=== PATIENT | female | born 1940 | race Caucasian/White ===

== ENCOUNTER 2017-07-30 09:33 | Inpatient (IN) | payer MEDICARE, MEDICAID ==
[2017-07-30 10:06] LABS: % BASOPHILS 1.3 % (0.0-2.0); % EOSINOPHILS 0.5 % (0.0-5.0); % LYMPHOCYTES 10.3 % (20.0-50.0); % NEUTROPHILS 84.9 % (40.0-80.0); MEAN CELL VOLUME 91.2 fl (81-100); MEAN CORPUSCULAR HEMOGLOBIN 30.1 pg (27.0-31.0); MEAN PLATELET VOLUME 8.5 fl; NEUTROPHILE ABSOLUTE 8.6 Th/cmm (1.8-8.0); PLATELET COUNT 257 Th/cmm (150-400); RED BLOOD COUNT 4.84 Mil/cmm (3.80-5.20); RED CELL DISTRIBUTION WIDTH 12.8 % (11.5-20.0)
--- NOTE | 2017-07-30 10:09 | ED Physician Chart ---
Chief Complaint/HPI - Patient Information Date Seen:: 07/30/17 Time Seen:: 09:46 Chief Complaint:: SEIZURES History of Present Illness:: THIS IS A 76 YO FEMALE WHO WAS SENT FROM THE INTERMEDIATE FOR EVALUATION AND TREATMENT OF HER SEIZURES DISORDER. SHE HAD A TONIC CLONIC SEIZURE THAT LAST FOR ABOUT 15 SECONDS JUST 1 HOUR PRIOR TO ARRIVAL HERE. THE LAST SEIZURES SHE HAD WAS ABOUT A YEAR AGO. SHE IS CHRONICALLY ILL WITH COPD, CAD, OBESITY AND SCHIZOPHRENIA. Allergies:: Allergies Allergy/AdvReac Type Severity Reaction Status Date / Time Sulfa (Sulfonamide AdvReac Verified 07/30/17 09:37 Antibiotics) Vitals:: Vital Signs - 8 hr 07/30/17 09:42 Temp 98.1 F HR 84 RR 16 BP 121/66 O2 Sat % 96 Historian:: EMS, Medical Records Review:: Nurse's Note Reviewed, Old Chart Reviewed, Transfer documents Reviewed Review of Systems - Review of Systems General/Constitutional: No fever, No chills, No weight loss, No weakness, No diaphoresis, No edema, No loss of appetite, Other (THIS PATIENT IS UNABLE TO GIVE A REVIEW OF SYSTEMS.) Skin: No skin lesions, No rash, No bruising Head: No headache, No light-headedness Eyes: No loss of vision, No pain, No diplopia ENT: No earache, No nasal drainage, No sore throat, No tinnitus Neck: No neck pain, No swelling, No thyromegaly, No stiffness, No mass noted Cardio Vascular: No chest pain, No palpitations, No PND, No orthopnea, No edema Pulmonary: No SOB, No cough, No sputum, No wheezing GI: No nausea, No vomiting, No diarrhea, No pain, No melena, No hematochezia, No constipation, No hematemesis G/U: No dysuria, No frequency, No hematuria Musculoskeletal: No bone or joint pain, No back pain, No muscle pain Endocrine: No polyuria, No polydipsia Psychiatric: No prior psych history, No depression, No anxiety, No suicidal ideation Hematopoietic: No bruising, No lymphadenopathy Allergic/Immuno: No urticaria, No angioedema Neurological: No syncope, No focal symptoms, No weakness, No paresthesia, No headache, No seizure, No dizziness, No confusion, No vertigo Past Medical History - Past Medical History Obtainable: Yes Past Medical History: HTN, CAD, Asthma/COPD, Seizures, Dementia, Other ( PARKINSONS'S) Family History: None Social History: Non Smoker, No Alcohol, No Drug Use, Care Facility Surgical History: None Psychiatricy History: Schizophrenia Medication: Reviewed Family Medical History - Family Member Mother History Unknown: Yes Physical Exam - Physical Examination General/Constitutional: Awake, Well-developed, well-nourished, Alert, No distress, GCS 15, Non-toxic appearing, Ambulatory Other Gen/Cons comments:: DISORIENTED TIMES FOUR Head: Atraumatic Eyes: Lids, conjuctiva normal, PERRL, EOMI Skin: Nl inspection, No rash, No skin lesions, No ecchymosis, Well hydrated, No lymphadenopathy ENMT: External ears, nose nl, Nasal exam nl, Lips, teeth, gums nl Neck: Nontender, Full ROM w/o pain, No JVD, No nuchal rigidity, No bruit, No mass, No stridor Respiratory: Nl effort/Exclusion, Clear to Auscultation, No Wheeze/Rhonchi/Rales Cardio Vascular: RRR, No murmur, gallop, rubs, NL S1 S2 GI: No tenderness/rebounding/guarding, No organomegaly, No hernia, Normal BS's, Nondistended, No mass/bruits, No McBurney tenderness : No CVA tenderness Extremities: No tenderness or effusion, Full ROM, normal strength in all extremities, No edema, Normal digits & nails Neuro/Psych: DTR's symmetric, Normal sensory exam, Normal motor strength, Judgement/insight normal, Normal gait, No focal deficits Other Neuro/Psych comments:: SHE IS DISORIENTED AND LETHARGIC Misc: normal gait, Normal back, No paraspinal tenderness Labs/Radiology/EKG Results - Lab Results Results: Abnormal Lab Results 07/30/17 07/30/17 07/30/17 10:00 10:00 10:00 WBC 10.2 D RBC 4.84 Hgb 14.6 D Hct 44.2 D MCV 91.2 MCH 30.1 MCHC Differential 33.0 RDW 12.8 Plt Count 257 MPV 8.5 Neutrophils % 84.9 H Lymphocytes % 10.3 L Monocytes % 3.0 Eosinophils % 0.5 Basophils % 1.3 Specimen Source Sample Site pH pCO2 pO2 HCO3 Base Excess O2 Saturation Mendez Test Vent Rate Inspired O2 Tidal Volume PEEP Pressure (ins/psv/peep) Critical Value Sodium 137 Potassium 3.8 Chloride 102 Carbon Dioxide 24.5 Anion Gap 14.3 BUN 18 Creatinine 0.7 Est GFR ( Amer) TNP Est GFR (Non-Af Amer) TNP BUN/Creatinine Ratio 25.7 Glucose 145 H Calcium 9.3 Total Bilirubin 0.3 AST 16 ALT 12 Alkaline Phosphatase 77 Total Protein 6.3 Albumin 3.7 Globulin 2.6 Albumin/Globulin Ratio 1.4 Valproic Acid < 10.0 L 07/30/17 10:10 WBC RBC Hgb Hct MCV MCH MCHC Differential RDW Plt Count MPV Neutrophils % Lymphocytes % Monocytes % Eosinophils % Basophils % Specimen Source Arterial Sample Site Right Radial pH 7.36 pCO2 56.0 H* pO2 48.0 L* HCO3 28.3 H Base Excess 4.8 H O2 Saturation 82.0 L Mendez Test POSITIVE Vent Rate N/A Inspired O2 21 Tidal Volume N/A PEEP N/A Pressure (ins/psv/peep) N/A Critical Value SALAZAR Sodium Potassium Chloride Carbon Dioxide Anion Gap BUN Creatinine Est GFR ( Amer) Est GFR (Non-Af Amer) BUN/Creatinine Ratio Glucose Calcium Total Bilirubin AST ALT Alkaline Phosphatase Total Protein Albumin Globulin Albumin/Globulin Ratio Valproic Acid - Radiology Results Results: CHEST X-RAY = NAD - EKG Interpretations EKG Time:: 09:54 Rate & Rhythm: RATE=92 NSR [place]: LEFT Assessment - Assessment General Assessment: SEIZURE DISORDER HYPOXEMIA ED Septic Shock - . Is Septic Shock (SBP<90, OR Lactate>4 mmol\L) present?: No - <6hrs of presentation: Vital Signs: Vital Signs - 8 hr 07/30/17 09:42 Temp 98.1 F HR 84 RR 16 BP 121/66 O2 Sat % 96 Reassessment (Disposition) - Diagnosis Diagnosis:: SEIZURES HYPOXEMIA SCHIZOPHRENIA - Patient Disposition Discharge/Transfer:: Acute Care w/in this hosp Admitted to:: Telemetry Admitting Medical Physician:: Jonel Noe Condition at Disposition:: Improved ED Discharge Plan - Patient Disposition Admit/Discharge/Transfer: Acute Care w/in this hosp Condition at Disposition: Improved
[2017-07-30 10:11] LABS: HEMATOCRIT 44.2 % (35.0-45.0); HEMOGLOBIN 14.6 gm/dL (11.7-16.1); WHITE BLOOD COUNT 10.2 Th/cmm (4.8-10.8)
[2017-07-30 10:29] LABS: ALB/GLOB RATIO 1.4 (1.0-1.8); ALKALINE PHOSPHATASE 77 U/L (34-104); ANION GAP 14.3 (7.0-16.0); BILIRUBIN,TOTAL 0.3 mg/dL (0.3-1.0); BUN - UREA NITROGEN 18 mg/dL (7-25); BUN/CREATININE RATIO 25.7; CALCIUM SERUM 9.3 mg/dL (8.6-10.3); CARBON DIOXIDE 24.5 mEq/L (21.0-31.0); CHLORIDE 102 mEq/L (98-107); CREATININE - SERUM 0.7 mg/dL (0.6-1.2); GLUCOSE 145 mg/dL (70-105); POTASSIUM SERUM 3.8 mEq/L (3.5-5.1); SGOT 16 U/L (13-39); SGPT/ALT 12 U/L (7-52); SODIUM SERUM 137 mEq/L (136-145)
[2017-07-30 10:30] LABS: pH 7.36 (7.35-7.45)
[2017-07-30 10:31] LABS: BE(B) 4.8 mEq/L (-3.0-3.0); HCO3 28.3 mEq/L (20.0-26.0)
[2017-07-30 10:32] LABS: ABG SOURCE Arterial; ALLEN TEST POSITIVE; FIO2 21
[2017-07-30 10:33] LABS: CRITICAL VALUES REPORTED BY JC
--- NOTE | 2017-07-30 12:00 | Diagnostic Imaging Report ---
CHEST X-RAY: AP view INDICATION: Shortness of breath COMPARISON: 04/17/2015 FINDINGS: No focal consolidation or effusions. Chronic lung changes are noted. Mild cardiomegaly is noted. Atherosclerosis is noted. Degenerative changes of the spine and bilateral shoulders are noted. IMPRESSION: No focal consolidation or evidence of CHF. Mild cardiomegaly with atherosclerosis.
[2017-07-30] MEDS ORDERED: Albuterol Nebulizer 2.5mg/3mL HHN SCH (13:38)
[2017-07-30] MEDS ORDERED: Ipratropium Neb 0.5 mg/2.5 mL UD HHN SCH (13:38)
[2017-07-30] MEDS ORDERED: Levetiracetam 1000mg/100mL 1,000 MG/100 ML BAG IV SCH ×2 (14:15→15:30)
[2017-07-30] MEDS ORDERED: Levetiracetam 500mg/100mL 500 MG/100 ML BAG IV SCH (15:30)
[2017-07-30] MEDS ORDERED: Levetiracetam 1000mg/100mL 1,000 MG/100 ML BAG IV ONE (16:15)
[2017-07-30 16:53] VITALS: BP 143/57
[2017-07-30] MEDS ORDERED: Valproate Sodium 1,000 MG in Sodium Chloride 0.9% 100 ML IV SCH (17:00)
[2017-07-30] MEDS ORDERED: Maalox 30 mL Cup PO PRN (17:12)
[2017-07-30] MEDS ORDERED: Hydrocodone/APAP 5mg/325mg Tab PO PRN (17:12)
[2017-07-30] MEDS: Valproate Sodium 1,000 MG in Sodium Chloride 0.9% 100 ML IV SCH (17:20)
[2017-07-30] MEDS: Albuterol/Ipratropium Neb 3 ML AERS HHN SCH (19:24)
[2017-07-30] MEDS ORDERED: Diltiazem 5 mg/mL 5mL Vial IVP STA (20:29)
--- NOTE | 2017-07-30 20:29 | History & Physical ---
ADMIT DATE: 07/30/2017 PATIENT IDENTIFICATION: A 76-year-old female. CHIEF COMPLAINT: Brought in to the Emergency Room for altered mental status and seizure evaluation. HISTORY SOURCE: Reviewing the chart, talking to the Emergency Room MD as well as ICU nurse Mena. HISTORY OF PRESENT ILLNESS: A 76-year-old female. She resides at [facility] under the care of primary care doctor, Dr. Koehler, was brought in to the Emergency Room for evaluation of altered mental status with the seizure. According to the chart, the patient does have history of seizure disorder and she is supposed to take Depakote as well as the Keppra. Depakote level here in the hospital Emergency Room was reported less than 10. The patient was given p.o. Depakote here in the Emergency Room, but subsequently the patient was admitted to telemetry unit where the patient had another seizure. The patient was transferred to ICU for altered mental status and seizure and the patient was hypoxic. Upon my arrival, the patient came back from her postictal phase and started talking. According to the nursing staff, the patient had a fever of 100.6. The patient is alert, awake, and trying to appropriately answer the questions. PAST MEDICAL HISTORY: Remarkable for; 1. COPD. 2. Seizure. 3. Hypertension. 4. Obesity. 5. Gastroesophageal reflux disease. 6. Hyper ammonia level. 7. Psychotic disorder. 8. Urinary tract infection. MEDICATIONS: At the detention, the patient is taking multiple medications, which include metoprolol, ____, Keppra, Depakote, Colace, clonidine, vitamin D, atorvastatin, milk of magnesia, Tylenol. ALLERGIES: The patient is allergic to SULFA. SOCIAL HISTORY: The patient lives currently in a detention. The patient has no smoking, alcohol or drug use. FAMILY HISTORY: Unavailable. REVIEW OF SYSTEMS: The patient denies any headache. Denies any chest pain, denies any shortness of breath, denies any abdominal pain. Denies any hematemesis, hematuria, hematochezia, or melena. The patient denies any cough. PHYSICAL EXAMINATION: GENERAL: The patient is alert, awake, lying in the bed, following commands. VITAL SIGNS: Temperature 100.1, pulse is 120, respiratory rate 23, blood pressure 150/73. HEENT: Normocephalic, atraumatic. Extraocular muscles are intact. Tongue was pink and coated. Oropharynx congested. Nasal mucosa congested. NECK: Supple. No JVD, no hepatojugular reflex. No lymphadenopathy, thyromegaly or carotid bruit. HEART: Both heart sounds are regular, tachycardia noted. CHEST AND LUNGS: Equal in expansion with mild expiratory wheezing. ABDOMEN: Protuberant, soft. No guarding, rigidity. Bowel sounds are present. EXTREMITIES: Bilateral foot drop noted with no calf tenderness. NEUROLOGIC: Alert, awake, follows commands. Decreased power on the lower extremity noted which includes flexion, extension of proximal and distal muscles and no movement on both feet noted. Upper extremities, the patient is moving fairly well. AVAILABLE DIAGNOSTIC DATA: Performed in the Emergency Room, which include white count of 10.2, hemoglobin 14.6, platelet count of 257, pH of 7.36, pCO2 of 56, pO2 of 48, bicarbonate of 28.3. BUN and creatinine are 18 and 0.7. Electrolytes are normal. Random blood sugar 145. Depakote level is less than 10, liver functions are normal. CLINICAL IMPRESSION: 1. Most likely breakthrough seizure. 2. Hypoxia, secondary to central etiology and possible obstructive sleep apnea, obesity hypoventilation syndrome. 3. Hypertension. 4. Breakthrough seizure secondary to subtherapeutic Depakote and Keppra level. 5. Hepatic encephalopathy by history. 6. Psychotic disorder. 7. Gastroesophageal reflux disease. 8. Morbid obesity. 9. Chronic obstructive pulmonary disease. PLAN: The patient is admitted at this time to ICU, oxygen, nebulizer treatment will be added, empirically IV Rocephin will be added. Neurology consultation will be requested, continue to provide seizure precautions along with IV Depakote and Keppra for now. At also get the baseline EEG as well. The patient was noted to have heart rate of 125. The patient was seen by assembler adjuster, will follow his recommendation as well. Cardiac enzymes will be done. Neuro check will be done as well as for follow up lab. Care plan has been reviewed and discussed with the patient and the RN. JOB# [id number]
[2017-07-30] MEDS: D5-0.45NS 1,000 ML IV SCH (20:42)
[2017-07-30] MEDS: Atorvastatin Calcium 10 MG TAB PO SCH (20:44)
--- NOTE | 2017-07-30 21:15 | Consultation ---
DATE OF CONSULTATION: 07/30/2017 HISTORY OF PRESENT ILLNESS: A 76-year-old female. She is in long term. Seizure, tonic-clonic. There are no other seizures while here. There is a history of seizures. Last one about a year ago. The patient on Depakote and Keppra. Depakote level very low. The patient is lying in bed. PAST MEDICAL HISTORY: Seizures, dementia, Parkinson's, unclear whether the primary or secondary to medications. Hypertension, coronary artery disease, asthma, COPD. MEDICATIONS: Per reconciliation. REVIEW OF SYSTEMS: Twelve point negative except for above. PHYSICAL EXAMINATION: VITAL SIGNS: Temperature 98.1, blood pressure 120/66, pulse is 84. NECK: Supple, no bruits. HEART: Sounds S1, S2. LUNGS: Clear. NEUROLOGIC: Awake, alert. The patient answers questions, give me her name. but not much more. Pupils react to light. She is able to name simple objects. Face immobile. MOTOR: She has drift right and left arm, but increased tone, rigidity, cogwheeling. Tremor, more on the right than left, resting and action. Lower extremity, not much movement. The patient's reflexes about 1 ____ extremity, difficult to get the knees and ankles. IMPRESSION: 1.Seizure, with history of seizures. 2.Encephalopathy. 3.Schizophrenia. 4.Parkinson's. 5.Dementia. 6.Coronary artery disease. 7.Hypertension. PLAN: We will give IV Depakote and Keppra. CT scan, EEG. JOB# [id number]
--- NOTE | 2017-07-31 01:12 | Consultation ---
DATE OF CONSULTATION: 07/30/[address] Noe. HISTORY AND PHYSICAL: This 76-year-old female patient, who was transferred from [facility] because of altered level of consciousness as well as seizure activity. The patient was admitted to telemetry bed where the patient had repeat seizures and the patient was transferred to the intensive care unit. The patient had supraventricular tachycardia. The patient was started on Cardizem drip. PAST MEDICAL HISTORY: Grand mal seizures, supraventricular tachycardia, morbid obesity, COPD, Parkinson's disease, hypertension, iron deficiency anemia, hyperlipidemia, vitamin D deficiency, onychomycosis of the toenails, schizophrenia, hepatic encephalopathy. FAMILY HISTORY: Unremarkable. SOCIAL HISTORY: No history of smoking, alcohol abuse. ALLERGIES: No known allergies. PHYSICAL EXAMINATION: VITAL SIGNS: Blood pressure 130/82, pulse 120 regular, respirations 28. HEAD: Normocephalic. No lumps or bumps. EYES: Pupils are equal, reactive to light. Fundi show AV nicking, sclerae white, conjunctivae pink. NECK: Carotid 2+. Normal upstroke. JVD flat. Thyroid not palpable. Lymph nodes not palpable. CHEST: Shows increased AP diameter. No kyphosis, scoliosis. LUNGS: Bilateral bronchovesicular breath sounds. HEART: PMI fifth intercostal space with lateral to midclavicular line. S1, S2. No S3, S4. Systolic murmur, grade 2/6, lower left sternal border without radiation. ABDOMEN: Soft. Liver and spleen are not palpable. No organomegaly. Bowel sounds are active. NEUROLOGIC: Seizure activity. EXTREMITIES: Peripheral pulses 2+. No pedal edema. CLINICAL IMPRESSION: Grand mal seizures, supraventricular tachycardia, hepatic encephalopathy, morbid obesity, chronic obstructive pulmonary disease, Parkinson's disease, hypertension, iron deficiency anemia, hyperlipidemia, vitamin D deficiency, onychomycosis of toenails, schizophrenia. PLAN: The patient will continue on IV Ativan, neurology consult, and start the patient on Cardizem drip, also get an echocardiogram. JOB# [id number]
[2017-07-31] MEDS: Albuterol/Ipratropium Neb 3 ML AERS HHN SCH ×4 (01:46→18:41)
[2017-07-31] MEDS: Levetiracetam 1000mg/100mL 1,000 MG/100 ML BAG IV SCH ×2 (03:50→15:58)
[2017-07-31] MEDS: Valproate Sodium 1,000 MG in Sodium Chloride 0.9% 100 ML IV SCH ×2 (04:06→18:28)
[2017-07-31 07:41] LABS: MEAN CELL VOLUME 91.3 fl (81-100); MEAN CORPUSCULAR HEMOGLOBIN 30.2 pg (27.0-31.0); MEAN CORPUSCULAR HGB CONC 33.1 pg (28.0-36.0); MEAN PLATELET VOLUME 8.3 fl; PLATELET COUNT 221 Th/cmm (150-400); RED BLOOD COUNT 4.11 Mil/cmm (3.80-5.20); RED CELL DISTRIBUTION WIDTH 12.5 % (11.5-20.0)
[2017-07-31 07:55] LABS: ALB/GLOB RATIO 1.5 (1.0-1.8); ALKALINE PHOSPHATASE 55 U/L (34-104); ANION GAP 6.6 (7.0-16.0); BILIRUBIN,TOTAL 0.5 mg/dL (0.3-1.0); BUN - UREA NITROGEN 11 mg/dL (7-25); BUN/CREATININE RATIO 15.7; CALCIUM SERUM 8.7 mg/dL (8.6-10.3); CARBON DIOXIDE 31.3 mEq/L (21.0-31.0); CHLORIDE 103 mEq/L (98-107); CHOLESTEROL 144 mg/dL (<200); CREATININE - SERUM 0.7 mg/dL (0.6-1.2); GLUCOSE 105 mg/dL (70-105); POTASSIUM SERUM 3.9 mEq/L (3.5-5.1); SGOT 12 U/L (13-39); SGPT/ALT 10 U/L (7-52); SODIUM SERUM 137 mEq/L (136-145); TRIGLYCERIDES 78 mg/dL (<150)
[2017-07-31 08:24] LABS: WHITE BLOOD COUNT 12.2 Th/cmm (4.8-10.8)
[2017-07-31 08:25] LABS: HEMATOCRIT 37.6 % (35.0-45.0); HEMOGLOBIN 12.4 gm/dL (11.7-16.1)
[2017-07-31] MEDS ORDERED: Pneumococcal Vaccine 0.5 mL Vial IM ONE (10:00)
[2017-07-31 10:31] LABS: NEUTROPHILS 81 % (40-80); PLATELET ESTIMATE ADEQUATE (NORMAL); PLATELET MORPHOLOGY NORMAL (NORMAL)
[2017-07-31 10:38] LABS: TOTAL CELLS COUNTED 100
[2017-07-31] MEDS: NYSTATIN 100000 UNITS/GM POWD TP SCH ×2 (10:45→18:30)
--- NOTE | 2017-07-31 11:18 | Diagnostic Imaging Report ---
Head CT without intravenous contrast Indication: CVA Comparison: 02/19/2015 Technique: Axial images were obtained from the vertex to the skull base without IV contrast. Coronal reconstructions were made. Total DLP: 703, CTDI38 FINDINGS: Images of the brain obtained without contrast demonstrate no acute hemorrhage. No mass lesions identified. The ventricles and basal cisterns are patent. The garrison-white matter differentiation is preserved. There is no mass effect or midline shift. Atrophy is noted. Atherosclerosis is noted. No skull fractures identified. No soft tissue swelling. The paranasal sinuses are clear. IMPRESSION: No CT evidence of acute intracranial abnormality. Clinically indicated a follow-up MRI may also be obtained Atrophy. Atherosclerotic vascular disease.
[2017-07-31] MEDS: D5-0.45NS 1,000 ML IV SCH (15:59)
--- NOTE | 2017-07-31 16:37 | General Progress Note ---
Subjective - Review of Systems Subjective: Patient is seen and examined. Patient is more alert awake and oriented. Rug Washer's note reviewed. Patient denies any chest pain, shortness of breath , palpitation, dizziness, headache. Objective - Results Result Diagrams: 07/31/17 07:16 07/31/17 07:16 Recent Labs: Laboratory Last Values WBC 12.2 Th/cmm (4.8-10.8) H 07/31/17 07:16 RBC 4.11 Mil/cmm (3.80-5.20) 07/31/17 07:16 Hgb 12.4 gm/dL (11.7-16.1) D 07/31/17 07:16 Hct 37.6 % (35.0-45.0) D 07/31/17 07:16 MCV 91.3 fl (81-100) 07/31/17 07:16 MCH 30.2 pg (27.0-31.0) 07/31/17 07:16 MCHC Differential 33.1 pg (28.0-36.0) 07/31/17 07:16 RDW 12.5 % (11.5-20.0) 07/31/17 07:16 Plt Count 221 Th/cmm (150-400) 07/31/17 07:16 MPV 8.3 fl 07/31/17 07:16 Neutrophils % 84.9 % (40.0-80.0) H 07/30/17 10:00 Lymphocytes % 10.3 % (20.0-50.0) L 07/30/17 10:00 Monocytes % 3.0 % (2.0-10.0) 07/30/17 10:00 Eosinophils % 0.5 % (0.0-5.0) 07/30/17 10:00 Basophils % 1.3 % (0.0-2.0) 07/30/17 10:00 Neutrophils (Manual) 81 % (40-80) H 07/31/17 07:16 Lymphocytes 11 % (20-50) L 07/31/17 07:16 Monocytes 8 % (2-10) 07/31/17 07:16 Platelet Estimate ADEQUATE (NORMAL) 07/31/17 07:16 Platelet Morphology NORMAL (NORMAL) 07/31/17 07:16 RBC Morph Micro Appear NORMAL (NORMAL) 07/31/17 07:16 Specimen Source Arterial 07/30/17 10:10 Sample Site Right Radial 07/30/17 10:10 pH 7.36 (7.35-7.45) 07/30/17 10:10 pCO2 56.0 mmHg (35.0-45.0) H* 07/30/17 10:10 pO2 48.0 mmHg (80.0-100.0) L* 07/30/17 10:10 HCO3 28.3 mEq/L (20.0-26.0) H 07/30/17 10:10 Base Excess 4.8 mEq/L (-3.0-3.0) H 07/30/17 10:10 O2 Saturation 82.0 % (92.0-100.0) L 07/30/17 10:10 Mendez Test POSITIVE 07/30/17 10:10 Vent Rate N/A 07/30/17 10:10 Inspired O2 21 07/30/17 10:10 Tidal Volume N/A 07/30/17 10:10 PEEP N/A 07/30/17 10:10 Pressure (ins/psv/peep) N/A 07/30/17 10:10 Critical Value SALAZAR 07/30/17 10:10 Sodium 137 mEq/L (136-145) 07/31/17 07:16 Potassium 3.9 mEq/L (3.5-5.1) 07/31/17 07:16 Chloride 103 mEq/L (98-107) 07/31/17 07:16 Carbon Dioxide 31.3 mEq/L (21.0-31.0) H 07/31/17 07:16 Anion Gap 6.6 (7.0-16.0) L 07/31/17 07:16 BUN 11 mg/dL (7-25) 07/31/17 07:16 Creatinine 0.7 mg/dL (0.6-1.2) 07/31/17 07:16 Est GFR ( Amer) TNP 07/31/17 07:16 Est GFR (Non-Af Amer) TNP 07/31/17 07:16 BUN/Creatinine Ratio 15.7 07/31/17 07:16 Glucose 105 mg/dL (70-105) 07/31/17 07:16 Calcium 8.7 mg/dL (8.6-10.3) 07/31/17 07:16 Total Bilirubin 0.5 mg/dL (0.3-1.0) 07/31/17 07:16 AST 12 U/L (13-39) L 07/31/17 07:16 ALT 10 U/L (7-52) 07/31/17 07:16 Alkaline Phosphatase 55 U/L (34-104) 07/31/17 07:16 Ammonia 78 umol/L (16-53) H 07/30/17 17:35 Troponin I 0.07 ng/mL (0.01-0.05) H* 07/31/17 07:16 Total Protein 5.3 gm/dL (6.0-8.3) L 07/31/17 07:16 Albumin 3.2 gm/dL (3.7-5.3) L 07/31/17 07:16 Globulin 2.1 gm/dL 07/31/17 07:16 Albumin/Globulin Ratio 1.5 (1.0-1.8) 07/31/17 07:16 Triglycerides 78 mg/dL (<150) 07/31/17 07:16 Cholesterol 144 mg/dL (<200) 07/31/17 07:16 LDL Cholesterol Direct 85 mg/dL (75-193) 07/31/17 07:16 HDL Cholesterol 40 mg/dL (23-92) 07/31/17 07:16 Valproic Acid < 10.0 ug/mL (50.0-100.0) L 07/30/17 10:00 - Physical Exam Vitals and I&O: Vital Signs Temp 97.9 F 07/31/17 12:00 Pulse 102 07/31/17 14:00 Resp 17 07/31/17 14:00 BP 129/70 07/31/17 14:00 Pulse Ox 96 07/31/17 14:00 Intake & Output 07/30/17 07/31/17 07/31/17 18:59 06:59 18:59 Intake Total 320 964.167 Output Total 600 Balance -280 964.167 Weight (lbs) 120.287 kg Intake: Intake, IV Amount 320 964.167 D5-0.45NS 1,000 ml @ 50 964.167 mls/hr IV .Q20H [facility] Rx#: [id number] Levetiracetam 1000mg/ 100 100mL 1,000 mg In 100 ml @ 400 mls/hr IV Q12H [facility] Rx#:[id number] Valproate Sodium 1,000 mg 220 In Sodium Chloride 0.9% 100 ml @ 100 mls/hr IV Q12H [facility] Rx#:[id number] Oral 0 Output: Urine 400 Stool 200 Other: # Bowel Movements 1 Stool Characteristics Formed [place] Active Medications: Current Medications Acetaminophen (Tylenol 650mg Supp) 650 mg RC Q6H PRN PRN Reason: Fever > 101 Stop: 09/28/17 15:39 Acetaminophen (Tylenol) 650 mg PO Q6HR PRN PRN Reason: Fever >100.5 Stop: 09/28/17 17:11 Acetaminophen/Hydrocodone Bitart ([place] 5mg/325mg) 1 tab PO Q6HR PRN PRN Reason: Pain Stop: 09/28/17 17:11 Al Hydrox/Mg Hydrox/Simethicone (Maalox) 30 ml PO Q4HR PRN PRN Reason: Gi upset Albuterol/Ipratropium (Duoneb Neb) 3 ml HHN Q6HRT [facility] Stop: 09/28/17 18:59 Last Admin: 07/31/17 12:09 Dose: 3 ml Atorvastatin Calcium (Lipitor) 10 mg PO HS BRETT PRN Reason: Protocol Stop: 09/28/17 20:59 Last Admin: 07/30/17 20:44 Dose: Not Given Docusate Sodium (Colace) 250 mg PO DAILY [facility] Stop: 09/29/17 08:59 Last Admin: 07/31/17 10:43 Dose: 250 mg Valproate Sodium 1,000 mg/ (Sodium Chloride) 110 mls @ 100 mls/hr IV Q12H [facility] Stop: 09/28/17 15:59 Last Infusion: 07/31/17 05:13 Dose: Infused Levetiracetam (Keppra Pb) 1,000 mg in 100 mls @ 400 mls/hr IV Q12H [facility] Stop: 09/29/17 03:59 Last Admin: 07/31/17 15:58 Dose: 100 mls/hr Dextrose/Sodium Chloride (D5-0.45ns) 1,000 mls @ 50 mls/hr IV .Q20H [facility] Stop: 09/28/17 20:28 Last Admin: 07/31/17 15:59 Dose: 50 mls/hr Diltiazem HCl 125 mg/ Dextrose 125 mls @ 10 mls/hr IV TITR BRETT; 10 MG/HR PRN Reason: Protocol Stop: 09/28/17 20:30 Lorazepam (Ativan) 1 mg IVP Q1H PRN; Protocol PRN Reason: FOR SEIZURE Stop: 09/28/17 20:07 Last Admin: 07/31/17 02:02 Dose: 1 mg Metoprolol Tartrate (Lopressor) 50 mg PO DAILY BRETT Stop: 09/29/17 08:59 Last Admin: 07/31/17 09:00 Dose: Not Given Miscellaneous (Calcium/Cholecalciferol/Sodi [Calcium With Vitamin D 600 Mg-400 Iu-5 Mg]) 1 tab PO DAILY [facility] Stop: 09/29/17 08:59 Nystatin (Nystop) 100 units TP BID [facility] Stop: 09/29/17 08:59 Last Admin: 07/31/17 10:45 Dose: 100 units General: Alert, Cooperative HEENT: Atraumatic, PERRLA, EOMI Neck: Supple, Other (no JVD, no thyromegaly, no lymphadenopathy.) Cardiovascular: Regular rate, Normal S1, Normal S2 Lungs: Clear to auscultation, Normal air movement Abdomen: Bowel sounds, Soft, Tender Extremities: Other (bilateral foot drop noted) Neurological: Other (alert awake follows, and mowing upper extremity without difficulty lower extremity weakness reported.) Psych/Mental Status: Mental status NL - Procedures Procedures: Procedures Procedure Code Date INSERT PICC CATH [id number] 04/10/15 VENOUS CATHETERIZATION NEC 38.93 04/10/15 Assessment/Plan - Problem List Patient Problems: All Active Problems Hyperglycemia (Acute) R73.9 Hypopotassemia (Acute) E87.6 Morbid obesity (Acute) E66.01 Status epilepticus (Acute) G40.901 - Assessment Assessment: Altered mental status secondary to breakthrough seizure. Rule out CVA. Hypertension Hyperlipidemia Diffuse DJD Psychiatric disorder GERD Bilateral lower extremity weakness and foot drop. Seizure disorder - Plan Plan: Transfer her to [facility] floor. IV Keppra to by mouth Keppra. IV Depacon to by mouth Depakote. When necessary IV Ativan. Seizure precaution. General nursing care. Nutritional support Chronic management of her illness as ordered. Follow lab. Follow consultants recommendations Care plan reviewed and discussed with RN.
[2017-07-31] MEDS ORDERED: Levetiracetam 500mg/100mL 500 MG/100 ML BAG IV SCH (17:00)
[2017-07-31] MEDS: Atorvastatin Calcium 10 MG TAB PO SCH (21:16)
[2017-08-01] MEDS: Albuterol/Ipratropium Neb 3 ML AERS HHN SCH ×4 (01:11→18:51)
[2017-08-01] MEDS: Levetiracetam 1000mg/100mL 1,000 MG/100 ML BAG IV SCH (03:01)
[2017-08-01] MEDS: Valproate Sodium 1,000 MG in Sodium Chloride 0.9% 100 ML IV SCH (03:28)
[2017-08-01] MEDS: NYSTATIN 100000 UNITS/GM POWD TP SCH ×2 (13:01→18:22)
[2017-08-01] MEDS: D5-0.45NS 1,000 ML IV SCH (18:21)
[2017-08-01] MEDS: Atorvastatin Calcium 10 MG TAB PO SCH (21:42)
[2017-08-02] MEDS: Albuterol/Ipratropium Neb 3 ML AERS HHN SCH ×3 (01:11→13:54)
[2017-08-02] MEDS: NYSTATIN 100000 UNITS/GM POWD TP SCH (09:07)
[2017-08-02] MEDS ORDERED: Calcium Carb/Vit D 500 mg/200 U Tab PO SCH (09:30)
--- NOTE | 2017-08-02 12:44 | General Progress Note ---
Subjective - Review of Systems Subjective: Patient is seen and examined. Patient denies any chest pain, shortness of breath , palpitation, dizziness, headache. Now patient is in room 15 bed 1. Patient is eating her own meal. No new events reported by nursing staff. Objective - Results Result Diagrams: 07/31/17 07:16 07/31/17 07:16 Recent Labs: Laboratory Last Values WBC 12.2 Th/cmm (4.8-10.8) H 07/31/17 07:16 RBC 4.11 Mil/cmm (3.80-5.20) 07/31/17 07:16 Hgb 12.4 gm/dL (11.7-16.1) D 07/31/17 07:16 Hct 37.6 % (35.0-45.0) D 07/31/17 07:16 MCV 91.3 fl (81-100) 07/31/17 07:16 MCH 30.2 pg (27.0-31.0) 07/31/17 07:16 MCHC Differential 33.1 pg (28.0-36.0) 07/31/17 07:16 RDW 12.5 % (11.5-20.0) 07/31/17 07:16 Plt Count 221 Th/cmm (150-400) 07/31/17 07:16 MPV 8.3 fl 07/31/17 07:16 Neutrophils % 84.9 % (40.0-80.0) H 07/30/17 10:00 Lymphocytes % 10.3 % (20.0-50.0) L 07/30/17 10:00 Monocytes % 3.0 % (2.0-10.0) 07/30/17 10:00 Eosinophils % 0.5 % (0.0-5.0) 07/30/17 10:00 Basophils % 1.3 % (0.0-2.0) 07/30/17 10:00 Neutrophils (Manual) 81 % (40-80) H 07/31/17 07:16 Lymphocytes 11 % (20-50) L 07/31/17 07:16 Monocytes 8 % (2-10) 07/31/17 07:16 Platelet Estimate ADEQUATE (NORMAL) 07/31/17 07:16 Platelet Morphology NORMAL (NORMAL) 07/31/17 07:16 RBC Morph Micro Appear NORMAL (NORMAL) 07/31/17 07:16 Specimen Source Arterial 07/30/17 10:10 Sample Site Right Radial 07/30/17 10:10 pH 7.36 (7.35-7.45) 07/30/17 10:10 pCO2 56.0 mmHg (35.0-45.0) H* 07/30/17 10:10 pO2 48.0 mmHg (80.0-100.0) L* 07/30/17 10:10 HCO3 28.3 mEq/L (20.0-26.0) H 07/30/17 10:10 Base Excess 4.8 mEq/L (-3.0-3.0) H 07/30/17 10:10 O2 Saturation 82.0 % (92.0-100.0) L 07/30/17 10:10 Mendez Test POSITIVE 07/30/17 10:10 Vent Rate N/A 07/30/17 10:10 Inspired O2 21 07/30/17 10:10 Tidal Volume N/A 07/30/17 10:10 PEEP N/A 07/30/17 10:10 Pressure (ins/psv/peep) N/A 07/30/17 10:10 Critical Value SALAZAR 07/30/17 10:10 Sodium 137 mEq/L (136-145) 07/31/17 07:16 Potassium 3.9 mEq/L (3.5-5.1) 07/31/17 07:16 Chloride 103 mEq/L (98-107) 07/31/17 07:16 Carbon Dioxide 31.3 mEq/L (21.0-31.0) H 07/31/17 07:16 Anion Gap 6.6 (7.0-16.0) L 07/31/17 07:16 BUN 11 mg/dL (7-25) 07/31/17 07:16 Creatinine 0.7 mg/dL (0.6-1.2) 07/31/17 07:16 Est GFR ( Amer) TNP 07/31/17 07:16 Est GFR (Non-Af Amer) TNP 07/31/17 07:16 BUN/Creatinine Ratio 15.7 07/31/17 07:16 Glucose 105 mg/dL (70-105) 07/31/17 07:16 Calcium 8.7 mg/dL (8.6-10.3) 07/31/17 07:16 Total Bilirubin 0.5 mg/dL (0.3-1.0) 07/31/17 07:16 AST 12 U/L (13-39) L 07/31/17 07:16 ALT 10 U/L (7-52) 07/31/17 07:16 Alkaline Phosphatase 55 U/L (34-104) 07/31/17 07:16 Ammonia 78 umol/L (16-53) H 07/30/17 17:35 Troponin I 0.07 ng/mL (0.01-0.05) H* 07/31/17 07:16 Total Protein 5.3 gm/dL (6.0-8.3) L 07/31/17 07:16 Albumin 3.2 gm/dL (3.7-5.3) L 07/31/17 07:16 Globulin 2.1 gm/dL 07/31/17 07:16 Albumin/Globulin Ratio 1.5 (1.0-1.8) 07/31/17 07:16 Triglycerides 78 mg/dL (<150) 07/31/17 07:16 Cholesterol 144 mg/dL (<200) 07/31/17 07:16 LDL Cholesterol Direct 85 mg/dL (75-193) 07/31/17 07:16 HDL Cholesterol 40 mg/dL (23-92) 07/31/17 07:16 Valproic Acid < 10.0 ug/mL (50.0-100.0) L 07/30/17 10:00 - Physical Exam Vitals and I&O: Vital Signs Temp 96.5 F 08/02/17 04:00 Pulse 86 08/02/17 09:07 Resp 20 08/02/17 07:31 BP 134/71 08/02/17 09:07 Pulse Ox 94 08/02/17 07:30 Intake & Output 08/01/17 08/02/17 08/02/17 18:59 06:59 18:59 Intake Total 599.167 200 Output Total 1230 600 Balance -630.833 -400 Weight (lbs) 119.567 kg 119.249 kg Intake: Intake, IV Amount 299.167 D5-0.45NS 1,000 ml @ 50 299.167 mls/hr IV .Q20H [facility] Rx#: [id number] Oral 300 200 Output: Urine 1230 600 Other: # Bowel Movements 1 0 Stool Characteristics Soft Formed Brown Active Medications: Current Medications Acetaminophen (Tylenol 650mg Supp) 650 mg RC Q6H PRN PRN Reason: Fever > 101 Stop: 09/28/17 15:39 Acetaminophen (Tylenol) 650 mg PO Q6HR PRN PRN Reason: Fever >100.5 Stop: 09/28/17 17:11 Acetaminophen/Hydrocodone Bitart (Prole 5mg/325mg) 1 tab PO Q6HR PRN PRN Reason: Pain Stop: 09/28/17 17:11 Al Hydrox/Mg Hydrox/Simethicone (Maalox) 30 ml PO Q4HR PRN PRN Reason: Gi upset Albuterol/Ipratropium (Duoneb Neb) 3 ml HHN Q6HRT BRETT Stop: 09/28/17 18:59 Last Admin: 08/02/17 07:23 Dose: 3 ml Atorvastatin Calcium (Lipitor) 10 mg PO HS BRETT PRN Reason: Protocol Stop: 09/28/17 20:59 Last Admin: 08/01/17 21:42 Dose: 10 mg Calcium/Vitamin D (Oscal W/Vitamin D) 1 tab PO DAILY [facility] Stop: 10/01/17 09:29 Last Admin: 08/02/17 09:38 Dose: Not Given Divalproex Sodium (Depakote Sprinkle) 500 mg PO Q8HR BRETT PRN Reason: Protocol Stop: 09/30/17 20:59 Last Admin: 08/02/17 06:22 Dose: 500 mg Docusate Sodium (Colace) 250 mg PO DAILY BRETT Stop: 09/29/17 08:59 Last Admin: 08/02/17 09:07 Dose: Not Given Dextrose/Sodium Chloride (D5-0.45ns) 1,000 mls @ 50 mls/hr IV .Q20H [facility] Stop: 09/28/17 20:28 Last Admin: 08/01/17 18:21 Dose: 50 mls/hr Diltiazem HCl 125 mg/ Dextrose 125 mls @ 10 mls/hr IV TITR BRETT; 10 MG/HR PRN Reason: Protocol Stop: 09/28/17 20:30 Levetiracetam (Keppra) 1,000 mg PO BID [facility] Stop: 09/30/17 16:59 Last Admin: 08/02/17 09:06 Dose: 1,000 mg Lorazepam (Ativan) 1 mg IVP Q1H PRN; Protocol PRN Reason: FOR SEIZURE Stop: 09/28/17 20:07 Last Admin: 07/31/17 02:02 Dose: 1 mg Metoprolol Tartrate (Lopressor) 50 mg PO DAILY [facility] Stop: 09/29/17 08:59 Last Admin: 08/02/17 09:07 Dose: Not Given Nystatin (Nystop) 100 units TP BID [facility] Stop: 09/29/17 08:59 Last Admin: 08/02/17 09:07 Dose: Not Given General: Alert, Cooperative HEENT: Atraumatic, PERRLA, EOMI Neck: Supple, Other (no JVD, no thyromegaly, no lymphadenopathy.) Cardiovascular: Regular rate, Normal S1, Normal S2 Lungs: Clear to auscultation, Normal air movement Abdomen: Bowel sounds, Soft, Tender Extremities: Other (bilateral foot drop noted) Neurological: Other (alert oriented to time place person, decrease lower extremity weakness.) Psych/Mental Status: Mental status NL - Procedures Procedures: Procedures Procedure Code Date INSERT PICC CATH 49715 04/10/15 VENOUS CATHETERIZATION NEC 38.93 04/10/15 Assessment/Plan - Problem List Patient Problems: All Active Problems Hyperglycemia (Acute) R73.9 Hypopotassemia (Acute) E87.6 Morbid obesity (Acute) E66.01 Status epilepticus (Acute) G40.901 - Assessment Assessment: Altered mental status secondary to breakthrough seizure. Hypertension Hyperlipidemia Diffuse DJD Supraventricular tachycardia Psychiatric disorder GERD Bilateral lower extremity weakness and foot drop. Seizure disorder - Plan Plan: Discharged to the [facility] with continuation of same medication as patient is receiving. the discharge summary dictated.. Nutritional Asmnt/Malnutr-PDOC - Dietary Evaluation Malnutrition Findings (Please click <Entered> for more info): Nutritional Asmnt/Malnutrition Start: 08/02/17 12: 10 Text: Status: Active Freq: Document 08/02/17 12:10 MMULHERN (Rec: 08/02/17 12:22 MMULTHIEN ROGERS- FN) Nutritional Asmnt/Malnutrition Patient General Information Nutritional Screening Consult Diagnosis Seizure Pertinent Medical Hx/Surgical Hx COPD, Seizure, hypertension, obesity, GERD, hyper ammonia level, Psychotic disorder, Urinary tract infection Subjective Information Consult recieved for Dax below 12. Patient was admitted from [facility] for altered mental status with seizure. Current Diet Order/ Nutrition Support Mechanical soft chopped, low fat, CHARISMA NCS Patient / S.O Not Indicated Pertinent Medications Maalox, lipitor, Oscal, D5-0. 45NS @50ml/hr, colace Pertinent Labs Albumin 3.2 Nutritional Hx/Data Height 1.57 m Height (Calculated Centimeters) 157.5 Current Weight (lbs) 118.841 kg Weight (Calculated Kilograms) 118.8 Weight (Calculated Grams) 104237.2 Lorman Body Weight 110 % Lorman Body Weight 238 Recent Weight Change No Weight Status Morbidly Obese GI Symptoms GI Symptoms None Food Allergies No Cultural/Ethnic/Islam Belief None indicated Usual diet at home unknown Skin Integrity/Comment: Dax 13, Current %PO Fair (50-74%) Estimated Nutritional Goals BEE in Kcals: Adj wt of IBW Calories/Kcals/Kg 25-30 kcal/kg (using adj weight 67.2kg) Kcals Calculated 1680-2000kcal/day Protein: Adj wt of IBW Protein g/k-1.2 gm/kg (using adj weight 67.2kg) Protein Calculated 65-80 gm/day Fluid: ml 5369-8763 ml/day (30-35 ml/kg Adj weight) Nutritional Problem 1. Problem Problem Malnutrition related to Etiology obesity aeb Signs/Symptoms: BMI 48.1 Malnutrition Related to Morbid Obesity Malnutrition related to morbid obesity BMI> or equal to 40 Query Text:(Any 1 Criteria met) Intervention/Recommendation Comments 1. Continue mechanical soft chopped, low fat, CHARISMA, NCS diet as tolerated by patient. Expected Outcomes/Goals Expected Outcomes/Goals Weight trends toward ideal body weight, oral intake to meet <75% of estimated needs, nutrition related labs normal
--- NOTE | 2017-08-02 13:35 | Discharge Summary ---
DATE OF DISCHARGE: 08/02/2017 IDENTIFICATION: A 76-year-old female. PRINCIPAL DIAGNOSES: 1. Altered mental status secondary to breakthrough seizure. 2. Hypoxia, most resolved, suspected probably from seizure causing her to have hypoventilation syndrome due to her obesity. 3. Hypertension. 4. Obstructive sleep apnea. 5. Psychotic disorder. 6. Gastroesophageal reflux disease. 7. Chronic obstructive pulmonary disease. 8. History of hepatic encephalopathy. 9. Supraventricular tachycardia. BRIEF TREATMENT FOR THE REASON FOR ADMISSION: A 76-year-old female who presented to the Emergency Room for altered mental status and seizure evaluation. When the patient was in the ER, the patient was also noted to have significant hypoxia. The patient was evaluated and subsequently admitted to ICU. Please refer to my dictated medical H and P for further information. HOSPITAL COURSE: The patient was admitted to ICU. The patient was given oxygen, nebulizer treatment along with empiric IV antibiotics. Seizure medication levels were checked. IV Depakene and Keppra were given. The patient had Neurology and Cardiology evaluation since patient's heart rate was 130 as well. The patient was noted to have SVT by assessment manager. Cardiac enzymes were done, which were negative. The patient did respond fairly well to IV Depakene and Keppra. The patient's mental status improved significantly. EEG were done, which was unremarkable for any abnormal activity. CT scan of the head was done on 07/31/2017, which was read by radiologist. No CT evidence of any acute intracranial abnormality, atrophy or atherosclerotic vascular disease was reported. The patient was stabilized and transferred to telemetry and from telemetry to Med/Surg floor. There was no reported seizures were given. IV Depakene and IV Keppra were switched to p.o. by mouth. The patient's other medications were continued ____ the patient was receiving. The patient remained hemodynamically stable and no further seizure activity was reported. Decision was made that the patient is to be discharged back to [facility]. The patient is discharged to [facility] in stable condition where the patient will be followed by her government service executive as well. JOB# [id number]
--- NOTE | 2017-08-04 20:54 | Admit Criteria Form ---
Admit Criteria Forms - Admit Criteria Diagnosis: SEIZURE Clinical Indications for Admission to Inpatient Care (Place 'X' for any and all applicable criteria): Admission is indicated for seizure and 1 or more of the following (1)(2)(3)(4)(5 )(6) [ X]I. Inpatient admission required rather than observation care (Also use Seizure: Observation Care Criteria as appropriate) because of 1 or more of the following: [ ]1) Altered mental status that is severe or persistent [ ]2) New focal neurologic deficit that is severe or persistent [ ]3) Metabolic disorder (eg, hypoglycemia, hyponatremia) that is severe or persistent [ ]4) Recurrent seizure [X ]5) Outpatient antiseizure regimen cannot be established (eg , patient cannot tolerate medication, initiation requires inpatient care) [X ]6) Need for ongoing intravenous infusion of anti-seizure medication [ ]7) Cerebral bleeding, hydrocephalus, or vasospasm monitoring [ ]8) Increased intracranial pressure or cerebral edema monitoring [ ]9) Other conditions, treatment or monitoring requiring inpatient admission [ ]II. Status epilepticus [A] or repetitive seizures not controlled with emergent treatment (6)(8) [ ]III. Brain disorder (eg, tumor, edema, and hydrocephalus) that requiring monitoring or intervention available only at inpatient level of care. [ ]IV. Brain insult (eg, severe trauma, stroke, drug toxicity, or withdrawal) that requires monitoring or intervention available only at inpatient level of care (10)(11) [ ]V. Cardiac arrhythmias of immediate concern Extended stay beyond goal length of stay may be needed for (22) [ ]a) Complications of status epilepticus [ ]b) Refractory status epilepticus [ ]c) Etiology-specific therapy for conditions such as SOFTWARE TOOLS ENGINEER infection, head injury,eclampsia, severe metabolic abnormalities, and brain tumor [ ]d) Residual neurologic damage, [ ]e) Initiation of significant change to anticonvulsant treatment [ ]f) Older patients (65 years or older) [ ]g) Patient requiring intubation (eg, to protect airway) The original [facility] [employer] content created by [facility] [employer] has been revised. The portions of the content which have been revised are identified through the use of italic text or in bold, and [facility] [employer] has neither reviewed nor approved the modified material. All other unmodified content is copyright [facility]. Please see references footnoted in the original [facility] edition 2017 Admit Criteria Met?: Yes
== END 2017-08-02 16:15 | disposition home or self-care (01) | DRG 100 ==
LOC: ER 09:33 → TELE 11:05 → ICU 14:29 → MSI 08-02 06:45
PROVIDERS: ADMIT Internal Medicine; ATTEND Internal Medicine
DX: G40.409 Other generalized epilepsy and epileptic syndromes, not intractable, without status epilepticus (principal); J96.01 Acute respiratory failure with hypoxia; F03.90 Unspecified dementia, unspecified severity, without behavioral disturbance, psychotic disturbance, mood disturbance, and anxiety; I25.10 Atherosclerotic heart disease of native coronary artery without angina pectoris; I10 Essential (primary) hypertension; B35.1 Tinea unguium; E66.2 Morbid (severe) obesity with alveolar hypoventilation; Z68.42 Body mass index [BMI] 45.0-49.9, adult; I47.1 Supraventricular tachycardia; G20 Parkinson's disease; J44.9 Chronic obstructive pulmonary disease, unspecified; F20.9 Schizophrenia, unspecified; K21.9 Gastro-esophageal reflux disease without esophagitis; F29 Unspecified psychosis not due to a substance or known physiological condition; D50.9 Iron deficiency anemia, unspecified; E78.5 Hyperlipidemia, unspecified; E55.9 Vitamin D deficiency, unspecified; K72.90 Hepatic failure, unspecified without coma; M19.90 Unspecified osteoarthritis, unspecified site; M21.372 Foot drop, left foot; M21.371 Foot drop, right foot; M62.81 Muscle weakness (generalized); Z88.2 Allergy status to sulfonamides; Z87.440 Personal history of urinary (tract) infections; Z79.899 Other long term (current) drug therapy
CPT/HCPCS: 36415-UA; 36600-90; 70450-TC; 71010-TC; 80053-TC; 80061-TC; 80164-TC; 80299-90; 82140-TC; 82607-90; 82803-TC; 84484-TC; 85007-TC; 85025-TC; 85027-TC; 93005; 94640; 94760; 95816-TC; J1953; J2060; Z7610

== ENCOUNTER 2019-04-26 18:53 | Inpatient (IN) | payer MEDICARE, MEDICAID ==
--- NOTE | 2019-04-26 19:43 | ED Physician Chart ---
ED Chief Complaint/HPI - Patient Information Date Seen:: 04/26/19 Time Seen:: 19:38 Chief Complaint:: possible seizure History of Present Illness:: 78 yr old female with multiple med problemsincluding seizure here for possible seizure pt awake alert verbal following commands Allergies:: Allergies Allergy/AdvReac Type Severity Reaction Status Date / Time Sulfa (Sulfonamide AdvReac Verified 07/30/17 09:37 Antibiotics) Vitals:: Vital Signs - 8 hr 04/26/19 19:09 Temp 98.9 F HR 116 RR 18 BP 163/75 O2 Sat % 87 ED Review of Systems - Review of Systems General/Constitutional: No fever, No chills, No weight loss, No weakness, No diaphoresis, No edema, No loss of appetite Skin: No skin lesions, No rash, No bruising Head: No headache, No light-headedness Eyes: No loss of vision, No pain, No diplopia ENT: No earache, No nasal drainage, No sore throat, No tinnitus Neck: No neck pain, No swelling, No thyromegaly, No stiffness, No mass noted Cardio Vascular: No chest pain, No palpitations, No PND, No orthopnea, No edema Pulmonary: No SOB, No cough, No sputum, No wheezing GI: No nausea, No vomiting, No diarrhea, No pain, No melena, No hematochezia, No constipation, No hematemesis G/U: No dysuria, No frequency, No hematuria Musculoskeletal: Other (flaccid deformity lower feet) Endocrine: No polyuria, No polydipsia Psychiatric: No prior psych history, No depression, No anxiety, No suicidal ideation Hematopoietic: No bruising, No lymphadenopathy Allergic/Immuno: No urticaria, No angioedema Neurological: No syncope, No focal symptoms, No weakness, No paresthesia, No headache, No seizure, No dizziness, No confusion, No vertigo ED Past Medical History - Past Medical History Past Medical History: Other (see nurses notes) Family Medical History - Family Member Mother History Unknown: Yes Ethnicity: Non- Living Status: ED Physical Exam - Physical Examination General/Constitutional: Awake Head: Atraumatic Eyes: Lids, conjuctiva normal Skin: No skin lesions Neck: Nontender Respiratory: Nl effort/Exclusion Cardio Vascular: RRR GI: No tenderness/rebounding/guarding, No organomegaly Other Extremities comments:: flaccid paralysis feet Neuro/Psych: Alert/oriented ED Septic Shock - . Is Septic Shock (SBP<90, OR Lactate>4 mmol\L) present?: No - <6hrs of presentation: Vital Signs: Vital Signs - 8 hr 04/26/19 19:09 Temp 98.9 F HR 116 RR 18 BP 163/75 O2 Sat % 87 ED Reassessment (Disposition) - Reassessment Reassessment:: seizures - Diagnosis Diagnosis:: as above - Patient Disposition Discharge/Transfer:: Acute Care w/in this hosp Admitted to:: Med/Surg Condition at Disposition:: Stable
[2019-04-26 19:54] LABS: % EOSINOPHILS 0.3 % (0.0-5.0); % LYMPHOCYTES 6.8 % (20.0-50.0); % MONOCYTES 4.1 % (2.0-10.0); % NEUTROPHILS 88.8 % (40.0-80.0); HEMOGLOBIN 14.8 gm/dL (12-16); LYMPHOCYTE ABSOLUTE 0.6 Th/cmm (1.5-3.0); MEAN CELL VOLUME 88.2 fl (81-100); MEAN CORPUSCULAR HEMOGLOBIN 29.1 pg (27.0-31.0); MEAN PLATELET VOLUME 8.2 fl; MONOCYTE ABSOLUTE 0.4 Th/cmm (0.3-1.0); NEUTROPHILE ABSOLUTE 8.1 Th/cmm (1.8-8.0); PLATELET COUNT 286 Th/cmm (150-400); RED CELL DISTRIBUTION WIDTH 13.8 % (11.5-20.0); WHITE BLOOD COUNT 9.1 Th/cmm (4.8-10.8)
[2019-04-26 20:05] LABS: ALB/GLOB RATIO 1.7 (1.0-1.8); ALKALINE PHOSPHATASE 67 U/L (34-104); ANION GAP 16.8 (7.0-16.0); BILIRUBIN,TOTAL 0.4 mg/dL (0.3-1.0); BUN - UREA NITROGEN 15 mg/dL (7-25); CALCIUM SERUM 9.3 mg/dL (8.6-10.3); CARBON DIOXIDE 24.7 mEq/L (21.0-31.0); CHLORIDE 103 mEq/L (98-107); CREATININE - SERUM 0.8 mg/dL (0.6-1.2); CREATININE KINASE 50 U/L (30-223); GLUCOSE 161 mg/dL (70-105); POTASSIUM SERUM 4.5 mEq/L (3.5-5.1); SGOT 20 U/L (13-39); SGPT/ALT 19 U/L (7-52); SODIUM SERUM 140 mEq/L (136-145); TOTAL PROTEIN,SERUM 6.4 gm/dL (6.0-8.3)
[2019-04-26 23:59] VITALS: BP 145/54
[2019-04-27 07:29] LABS: HEMATOCRIT 42.2 % (41.0-60); HEMOGLOBIN 14.2 gm/dL (12-16); MEAN CORPUSCULAR HEMOGLOBIN 29.5 pg (27.0-31.0); MEAN CORPUSCULAR HGB CONC 33.6 pg (28.0-36.0); MEAN PLATELET VOLUME 9.1 fl; PLATELET COUNT 294 Th/cmm (150-400); RED BLOOD COUNT 4.79 Mil/cmm (3.80-5.20)
[2019-04-27 07:32] LABS: ALB/GLOB RATIO 1.5 (1.0-1.8); ALBUMIN 3.7 gm/dL (3.7-5.3); ALKALINE PHOSPHATASE 70 U/L (34-104); ANION GAP 12.4 (7.0-16.0); BILIRUBIN,TOTAL 0.4 mg/dL (0.3-1.0); BUN - UREA NITROGEN 15 mg/dL (7-25); CALCIUM SERUM 9.3 mg/dL (8.6-10.3); CARBON DIOXIDE 27.2 mEq/L (21.0-31.0); CHLORIDE 103 mEq/L (98-107); CREATININE - SERUM 0.8 mg/dL (0.6-1.2); GLUCOSE 107 mg/dL (70-105); POTASSIUM SERUM 3.6 mEq/L (3.5-5.1); SGOT 14 U/L (13-39); SGPT/ALT 15 U/L (7-52); SODIUM SERUM 139 mEq/L (136-145); TOTAL PROTEIN,SERUM 6.2 gm/dL (6.0-8.3); WHITE BLOOD COUNT 13.2 Th/cmm (4.8-10.8)
[2019-04-27] MEDS ORDERED: Polyvinyl Alcohol Ophth Soln 15 mL Bottle EACH EYE PRN (07:37)
[2019-04-27 08:16] LABS: BAND NEUTROPHILE 2 % (0-10); BASOPHIL 0 % (0-3); EOSINOPHIL 0 % (0-5); LYMPHOCYTE 14 % (20-50); MONOCYTE 4 % (2-10); NEUTROPHILS 80 % (40-80)
[2019-04-27] MEDS: Aspirin 81mg Chewable Tab PO SCH ×3 (08:50→10:22)
[2019-04-27] MEDS ORDERED: Non-Formulary Item 1 EA (Dextran 70/Hypromellose [Artificial Tears] 1 EACH) OP SCH (09:00)
--- NOTE | 2019-04-27 18:41 | History & Physical ---
ADMIT DATE: 04/27/2019 CHIEF COMPLAINT: Possible seizure. HISTORY OF PRESENT ILLNESS: A 78-year-old female who is a [facility] resident of [facility] admitted here to the telemetry unit due to possible seizure. No reports of any fevers at the fdc. PAST MEDICAL HISTORY: Hypercholesterolemia, psychosis, dementia. PAST SURGICAL HISTORY: Unknown. ALLERGIES: SULFA. FAMILY HISTORY: Noncontributory. SOCIAL HISTORY: The patient is a [facility] resident. REVIEW OF SYSTEMS: Unable to obtain, patient is confused. PHYSICAL EXAMINATION: GENERAL: The patient is well-developed, well-nourished, no apparent distress. VITAL SIGNS: Temperature 99.2, heart rate 76, blood pressure 131/62, respirations 20, O2 98%. HEENT: Head; normocephalic, atraumatic. NECK: Supple. No mass. LUNGS: Clear bilaterally. HEART: Regular rhythm. ABDOMEN: Soft, nontender. LABORATORY DATA: WBC 13.2, H and H 14.2 and 42.2, platelet of 294. Sodium 139, potassium 3.6, chloride 103, BUN 15, creatinine 0.8. ASSESSMENT: Seizures, generalized weakness, dementia, psychosis, hypercholesterolemia, leukocytosis. PLAN: The patient to be admitted to the telemetry unit. Seizure precautions will be initiated. We will get Neurology consultation. We will continue the patient's home medications. We will monitor the patient's Keppra level. We will continue to monitor this patient. JOB# [id number]
[2019-04-27] MEDS: Atorvastatin Calcium 10 MG TAB PO SCH (20:57)
[2019-04-28 06:45] LABS: % BASOPHILS 0.8 % (0.0-2.0); % EOSINOPHILS 1.8 % (0.0-5.0); % LYMPHOCYTES 28.6 % (20.0-50.0); % NEUTROPHILS 57.8 % (40.0-80.0); BASOPHILE ABSOLUTE 0.1 Th/cumm (0-0.2); EOSINOPHILE ABSOLUTE 0.1 Th/cmm (0.1-0.4); HEMATOCRIT 37.7 % (41.0-60); HEMOGLOBIN 12.6 gm/dL (12-16); LYMPHOCYTE ABSOLUTE 2.3 Th/cmm (1.5-3.0); MEAN CELL VOLUME 87.1 fl (81-100); MEAN CORPUSCULAR HEMOGLOBIN 29.1 pg (27.0-31.0); MEAN CORPUSCULAR HGB CONC 33.4 pg (28.0-36.0); MEAN PLATELET VOLUME 8.1 fl; MONOCYTE ABSOLUTE 0.9 Th/cmm (0.3-1.0); NEUTROPHILE ABSOLUTE 4.7 Th/cmm (1.8-8.0); PLATELET COUNT 258 Th/cmm (150-400); RED BLOOD COUNT 4.33 Mil/cmm (3.80-5.20); RED CELL DISTRIBUTION WIDTH 13.6 % (11.5-20.0); WHITE BLOOD COUNT 8.1 Th/cmm (4.8-10.8)
[2019-04-28 07:13] LABS: ANION GAP 10.6 (7.0-16.0); BUN - UREA NITROGEN 13 mg/dL (7-25); CALCIUM SERUM 8.8 mg/dL (8.6-10.3); CARBON DIOXIDE 28.8 mEq/L (21.0-31.0); CHLORIDE 103 mEq/L (98-107); CREATININE - SERUM 0.7 mg/dL (0.6-1.2); GLUCOSE 94 mg/dL (70-105); POTASSIUM SERUM 3.4 mEq/L (3.5-5.1); SODIUM SERUM 139 mEq/L (136-145)
[2019-04-28] MEDS: Aspirin 81mg Chewable Tab PO SCH (08:21)
[2019-04-28] MEDS ORDERED: Nystatin Cream 100,000 u/gm Cream 15 gm TP PRN (09:16)
[2019-04-28] MEDS ORDERED: Potassium Chloride 20 mEq ER Tab PO ONE (09:18)
--- NOTE | 2019-04-28 11:52 | Internal Medicine Prog Note ---
Internal Medicine Subjective - Subjective Service Date: 04/28/19 Patient seen and examined:: with staff Patient is:: awake Patient Complaints of:: other (Admitted for possible seizures.) Per staff patient has:: no adverse event, no episodes of fall Internal Medicine Objective - Results Result Diagrams: 04/28/19 06:00 04/28/19 06:00 Recent Labs: Laboratory Last Values WBC 8.1 Th/cmm (4.8-10.8) D 04/28/19 06:00 RBC 4.33 Mil/cmm (3.80-5.20) 04/28/19 06:00 Hgb 12.6 gm/dL (12-16) 04/28/19 06:00 Hct 37.7 % (41.0-60) L 04/28/19 06:00 MCV 87.1 fl (81-100) 04/28/19 06:00 MCH 29.1 pg (27.0-31.0) 04/28/19 06:00 MCHC Differential 33.4 pg (28.0-36.0) 04/28/19 06:00 RDW 13.6 % (11.5-20.0) 04/28/19 06:00 Plt Count 258 Th/cmm (150-400) 04/28/19 06:00 MPV 8.1 fl 04/28/19 06:00 Add Manual Diff YES 04/27/19 06:40 Neutrophils % 57.8 % (40.0-80.0) 04/28/19 06:00 Band Neutrophils % 2 % (0-10) 04/27/19 06:40 Lymphocytes % 28.6 % (20.0-50.0) 04/28/19 06:00 Monocytes % 11.0 % (2.0-10.0) H 04/28/19 06:00 Eosinophils % 1.8 % (0.0-5.0) 04/28/19 06:00 Basophils % 0.8 % (0.0-2.0) 04/28/19 06:00 Neutrophils (Manual) 80 % (40-80) 04/27/19 06:40 Lymphocytes 14 % (20-50) L 04/27/19 06:40 Monocytes 4 % (2-10) 04/27/19 06:40 Eosinophils 0 % (0-5) 04/27/19 06:40 Basophils 0 % (0-3) 04/27/19 06:40 Nucleated RBCs % (0-0) 04/27/19 06:40 Sodium 139 mEq/L (136-145) 04/28/19 06:00 Potassium 3.4 mEq/L (3.5-5.1) L 04/28/19 06:00 Chloride 103 mEq/L (98-107) 04/28/19 06:00 Carbon Dioxide 28.8 mEq/L (21.0-31.0) 04/28/19 06:00 Anion Gap 10.6 (7.0-16.0) 04/28/19 06:00 BUN 13 mg/dL (7-25) 04/28/19 06:00 Creatinine 0.7 mg/dL (0.6-1.2) 04/28/19 06:00 Est GFR ( Amer) TNP 04/28/19 06:00 Est GFR (Non-Af Amer) TNP 04/28/19 06:00 BUN/Creatinine Ratio 18.6 04/28/19 06:00 Glucose 94 mg/dL (70-105) 04/28/19 06:00 Calcium 8.8 mg/dL (8.6-10.3) 04/28/19 06:00 Total Bilirubin 0.4 mg/dL (0.3-1.0) 04/27/19 06:40 AST 14 U/L (13-39) 04/27/19 06:40 ALT 15 U/L (7-52) 04/27/19 06:40 Alkaline Phosphatase 70 U/L (34-104) 04/27/19 06:40 Creatine Kinase 50 U/L (30-223) 04/26/19 19:49 Troponin I 0.01 ng/mL (0.01-0.05) 04/26/19 19:49 Total Protein 6.2 gm/dL (6.0-8.3) 04/27/19 06:40 Albumin 3.7 gm/dL (3.7-5.3) 04/27/19 06:40 Globulin 2.5 gm/dL 04/27/19 06:40 Albumin/Globulin Ratio 1.5 (1.0-1.8) 04/27/19 06:40 TSH 1.62 uIU/ml (0.34-5.60) 04/26/19 19:49 Valproic Acid < 10.0 ug/mL (50.0-100.0) L 04/27/19 06:40 - Physical Exam Vitals and I&O: Vital Signs Temp 97.1 F 04/28/19 08:00 Pulse 72 04/28/19 08:00 Resp 18 04/28/19 10:18 BP 116/51 04/28/19 08:00 Pulse Ox 93 04/28/19 08:00 Intake & Output 04/27/19 04/28/19 04/28/19 18:59 06:59 18:59 Intake Total 60 Output Total 2 Balance 60 -2 Weight (lbs) 108.862 kg 108.862 kg Intake: Oral 60 Output: Urine 2 Other: # Voids 2 # Bowel Movements 1 0 Stool Characteristics Soft Weight Source Bedscale Bedscale Active Medications: Current Medications Artificial Tears (Artificial Tears Ophth Soln) 1 drop EACH EYE TID PRN PRN Reason: DRY EYES Stop: 06/26/19 07:36 Aspirin (Aspirin Chewable) 81 mg PO DAILY [facility] Stop: 06/26/19 08:59 Last Admin: 04/28/19 08:21 Dose: 81 mg Atorvastatin Calcium (Lipitor) 10 mg PO HS BRETT; Protocol Stop: 06/26/19 20:59 Last Admin: 04/27/19 20:57 Dose: 10 mg Carbidopa/Levodopa (Sinemet 25mg-100 Mg) 1 tab PO BID BRETT Stop: 06/26/19 08:59 Last Admin: 04/28/19 08:21 Dose: 1 tab Cholecalciferol (Vitamin D3) 1,000 iu PO DAILY BRETT Stop: 06/26/19 08:59 Last Admin: 04/28/19 08:21 Dose: 1,000 iu Gabapentin (Neurontin) 300 mg PO Q12HR BRETT Stop: 06/26/19 20:59 Last Admin: 04/28/19 08:21 Dose: 300 mg Lacosamide (Vimpat) 200 mg PO Q12H BRETT Stop: 06/27/19 08:59 Last Admin: 04/28/19 08:21 Dose: 200 mg Levetiracetam (Keppra) 1,000 mg PO Q12HR BRETT Stop: 06/26/19 20:59 Last Admin: 04/28/19 08:21 Dose: 1,000 mg Lorazepam (Ativan) 0.5 mg IVP Q4H PRN; Protocol PRN Reason: Seizure Stop: 06/25/19 22:14 Nystatin (Mycostatin Cream) 1 appl TP DAILY PRN PRN Reason: Itching Stop: 06/27/19 09:15 Physical Exam: 78 y/o female patient was admitted due to possible seizures, We are monitoring patient. General: weak, demented HEENT: NC/AT Neck: Supple Lungs: CTAB Cardiovascular: RRR Abdomen: soft, non-tender Extremities: clear Neurological: no change - Procedures Procedures: Procedures Procedure Code Date INS PICC 5 YR+ W/O IMAGING 24585 04/10/15 VENOUS CATHETERIZATION NEC 38.93 04/10/15 Internal Medicine Assmt/Plan - Assessment Assessment: R/o Seizures. Hx of Hypercholesterolemia. Dementia. Hx of Psychosis. - Plan Plan: Continuation of care. Monitor Vitals and Labs. Continue present meds as directed. Monitor vitals, continue B/P meds. Monitor Diet/Nutritional support. Psych management per Psych. Seizure precaution. Safety precaution. Supportive care. Fall precaution, frequent nursing rounds, and as needed restraints to prevent fall. Continue collaborating with consulting specialists, case management and nursing team. Will Monitor patient and continue current treatment plan as ordered. Nutritional Asmnt/Malnutr-PDOC - Dietary Evaluation Malnutrition Findings (Please click <Entered> for more info): see orders.
--- NOTE | 2019-04-28 17:52 | Consultation ---
DATE OF CONSULTATION: 04/27/2019 NEUROLOGY CONSULT HISTORY OF PRESENT ILLNESS: A 78-year-old female with question of possible seizures. The patient was difficult to awaken. Now, she is awake and alert. PAST MEDICAL HISTORY: Seizures. Question of Parkinson's. Previous stroke. COPD, obstructive sleep apnea, hyperlipidemia, diabetes. ALLERGIES: SULFA. MEDICATIONS: Depakote 500 mg q. 12 hours, lacosamide 200 mg q. 12 hours, gabapentin 300 mg q. 12 hours, Keppra 1000 mg q. 12 hours, Sinemet 25/100 mg b.i.d., aspirin 81 mg. REVIEW OF SYSTEMS: Twelve point negative except for above. PHYSICAL EXAMINATION: VITAL SIGNS: Temperature 98.9, blood pressure 160/75, pulse is 74. NECK: Supple. No neck bruits. HEART: Normal heart sounds. LUNGS: Clear. NEUROLOGIC: The patient is awake. She will answer questions. The patient is confused. Pupils react to light. No facial weakness. MOTOR: She will lift both arms up. Increased tone, somewhat more on the right than the left. The patient reflex about 1. Legs are weak, just were able to lift them, but very weak. Increased tone. ASSESSMENT: 1. Seizure, questionable. I would continue present medication. The patient needs to be continued on lacosamide, Keppra, gabapentin. I understand that Depakote has been stopped. 2. Question of Parkinson's. The patient to continue present Sinemet dose. 3. Dementia. 4. Psychosis. 5. Hyperlipidemia. 6. Obstructive sleep apnea. [facility]# [id number]
[2019-04-28] MEDS: Atorvastatin Calcium 10 MG TAB PO SCH (20:20)
--- NOTE | 2019-04-29 03:47 | Progress Notes ---
DATE: 04/28/2019 SUBJECTIVE: The patient is in bed. Awake. No repeat seizures. Still patient is somewhat confused and at times gets agitated. MEDICATIONS: Aspirin 81 mg, atorvastatin, Sinemet 25/100 mg b.i.d., gabapentin 300 mg q. 12 hours, lacosamide 200 mg q. 12 hours, Keppra 1000 mg q. 12 hours, lorazepam 0.5 mg p.r.n. OBJECTIVE: VITAL SIGNS: Temperature 97.7, blood pressure 134/56, pulse is 80. NECK: Supple, no bruits. CARDIOVASCULAR: Heart sounds S1, S2. LUNGS: Clear. NEUROLOGIC: The patient is awake, alert. The patient will answer question, but gets agitated very quickly. Motor, she will lift arms, but weak to be more on the right. Increased tone. ASSESSMENT: 1. Seizures. 2. Parkinson's. 3. Dementia. 4. Psychosis. 5. Hyperlipidemia. PLAN: Continue present treatment. Continue present seizures medication. JOB# [id number]
[2019-04-29 07:43] LABS: ANION GAP 11.4 (7.0-16.0); BUN - UREA NITROGEN 12 mg/dL (7-25); CALCIUM SERUM 8.8 mg/dL (8.6-10.3); CARBON DIOXIDE 29.5 mEq/L (21.0-31.0); CHLORIDE 104 mEq/L (98-107); CREATININE - SERUM 0.8 mg/dL (0.6-1.2); GLUCOSE 90 mg/dL (70-105); POTASSIUM SERUM 3.9 mEq/L (3.5-5.1); SODIUM SERUM 141 mEq/L (136-145)
[2019-04-29] MEDS: Aspirin 81mg Chewable Tab PO SCH (08:27)
--- NOTE | 2019-04-30 02:06 | Progress Notes ---
DATE: 04/29/2019 SUBJECTIVE: The patient was seen in her room. The patient is awake, alert and episodes of confusion and occasional agitation, but otherwise the patient appears to be comfortable, in no acute distress. OBJECTIVE: VITAL SIGNS: Temperature 97, heart rate 76, blood pressure 117/50, respiration 18, 94% on room air. HEENT: Head is atraumatic and normocephalic. Eyes: Bilateral conjunctivae are clear. Bilateral pupils are equally round and reactive. NECK: Supple. No JVD. CARDIOVASCULAR: S1 and S2, without murmur. PULMONARY: Clear to auscultation. GASTROINTESTINAL: Soft and nontender without guarding. Positive bowel sounds. MUSCULOSKELETAL: No clubbing. No cyanosis noted. ASSESSMENT: 1. Seizure disorder. 2. Parkinson disease. 3. Dementia. 4. Psychosis. 5. Hyperlipidemia. PLAN: We will continue current treatment. The patient medically cleared for discharge, going to [facility]. Treatment plans were discussed with the patient's nurse. Treatment plans were discussed with Dr. Amador. JOB# [id number]
== END 2019-04-29 15:35 | DRG 101 ==
LOC: ER 18:53 → TELE 21:58
PROVIDERS: ADMIT Internal Medicine; ATTEND Internal Medicine
DX: G40.909 Epilepsy, unspecified, not intractable, without status epilepticus (principal); F29 Unspecified psychosis not due to a substance or known physiological condition; D72.829 Elevated white blood cell count, unspecified; E78.5 Hyperlipidemia, unspecified; G47.33 Obstructive sleep apnea (adult) (pediatric); G20 Parkinson's disease; F02.80 Dementia in other diseases classified elsewhere, unspecified severity, without behavioral disturbance, psychotic disturbance, mood disturbance, and anxiety; Z88.2 Allergy status to sulfonamides
CPT/HCPCS: 36415-UA; 80048-TC; 80053-TC; 80164-TC; 80299-90; 82550-TC; 84443-TC; 84484-TC; 85007-TC; 85025-TC; 86592-TC; 93005; 94760; J2060; Z7610